=== PATIENT | female | born 1995 | race Caucasian/White ===

== ENCOUNTER 2019-06-01 15:17 | Emergency (ER) | payer OTHER ==
[2019-06-01] MEDS ORDERED: NS 0.9% 1000 ML** 1,000 ML IV ONE (16:08)
--- NOTE | 2019-06-01 16:20 | ED ---
Abdominal Pain/Female - HPI Summary HPI Summary: Patient is a 24 y/o F presenting to [facility] with complaints of RLQ pain that onset last night, 05/31/19, at around 2330. She denies N/V, fever, decreased appetite, back pain, dysuria, and vaginal discharge and bleeding. She was evaluated at [facility] and sent to [facility] to rule out appendicitis. She denies Hx of abdominal surgeries. Patient ate around 30 minutes ago. Hx of asthma and hyperhydrosis is endorsed. LNMP was May 14. She denies Hx of pelvic infections, ovarian cysts, ovarian torsion. Patient denies recent heavy lifting or strain. She states that she does not need any medications for pain and notes that the pain is only significant with movement. - History of Current Complaint Chief Complaint: EDAbdPain Stated Complaint: ABD PAIN PER PT Time Seen by Provider: 06/01/19 16:07 Hx Obtained From: Patient Onset/Duration: Lasting Hours, Still Present Timing: Hours Pain Intensity: 0 Pain Scale Used: 0-10 Numeric Location: Discrete At: RLQ Aggravating Factor(s): Movement Associated Signs and Symptoms: Positive: Other: - negative - back pain, recent heavy lifting or strain. Negative: Fever, Urinary Symptoms, Decreased Appetite , Vaginal Bleeding, Vaginal Discharge, Nausea, Vomiting Allergies/Adverse Reactions: Allergies Allergy/AdvReac Type Severity Reaction Status Date / Time No Known Allergies Allergy Verified 06/01/19 16:23 Home Medications: Home Medications Albuterol Sulfate [Proventil Hfa] 2 puff INH Q4HR PRN 06/01/19 [History Confirmed 06/01/19] Aluminum Chloride 1 applic .SEE ORDER DAILY 06/01/19 [History Confirmed 06/01/19 ] Estradiol/Norgestimate [Prefest Tablet] 1 tab PO DAILY 06/01/19 [History Confirmed 06/01/19] Spironolactone 1 tab PO BID 06/01/19 [History Confirmed 06/01/19] PMH/Surg Hx/FS Hx/Imm Hx Respiratory History: Reports: Hx Asthma History: Reports: Other Problems/Disorders - no Hx of ovarian cyst or pelvic infection - Surgical History Surgery Procedure, Year, and Place: on 06/01/19, reports no Hx of abdominal surgeries Infectious Disease History: No Infectious Disease History: Denies: Traveled Outside the [place] in Last 30 Days - Family History Known Family History: Negative: Blood Disorder - Social History Occupation: Student Alcohol Use: Occasionally Substance Use Type: Reports: None Smoking Status (MU): Never Smoked Tobacco Review of Systems Negative: Fever Gastrointestinal: Other - negative - decreased appetite Positive: Abdominal Pain. Negative: Vomiting, Nausea Genitourinary: Other - negative - vaginal bleeding Negative: dysuria, discharge - vaginal Musculoskeletal: Other - negative - back pain, recent heavy lifting or straining All Other Systems Reviewed And Are Negative: Yes Physical Exam - Summary Physical Exam Summary: Constitutional: Well-developed, Well-nourished, Alert. (-) Distressed Skin: Warm, Dry HENT: Normocephalic; Atraumatic Eyes: Conjunctiva normal Neck: Musculoskeletal ROM normal neck. (-) JVD, (-) Stridor, (-) Tracheal deviation Cardio: Rhythm regular, rate normal, Heart sounds normal; Intact distal pulses; The pedal pulses are 2+ and symmetric. Radial pulses are 2+ and symmetric. (-) Murmur Pulmonary/Chest wall: Effort normal. (-) Respiratory distress, (-) Wheezes, (-) Rales Abd: Soft, (+) McBurneys point tenderness (-) Distension, (-) Guarding, (-) Rebound Musculoskeletal: (-) Edema Lymph: (-) Cervical adenopathy Neuro: Alert, Oriented x3 Psych: Mood and affect Normal Triage Information Reviewed: Yes Vital Signs On Initial Exam: Initial Vitals Temp Pulse Resp BP Pulse Ox 98.1 F 72 16 130/88 100 06/01/19 15:21 06/01/19 15:21 06/01/19 15:21 06/01/19 15:21 06/01/19 15:21 Vital Signs Reviewed: Yes Procedures - Sedation Patient Received Moderate/Deep Sedation with Procedure: No Diagnostics - Vital Signs Vital Signs Temp Pulse Resp BP Pulse Ox 06/01/19 15:21 98.1 F 72 16 130/88 100 - Laboratory Result Diagrams: 06/01/19 16:26 06/01/19 16:26 Lab Statement: Any lab studies that have been ordered have been reviewed, and results considered in the medical decision making process. - Ultrasound APPENDIX US Ultrasound Interpretation Completed By: Radiologist Summary of Ultrasound Findings: IMPRESSION: Appendix not visualized. THIS REPORT WAS REVIEWED BY DR. DINERO. Re-Evaluation - Re-Evaluation First Eval Re-Evaluation Time: 18:30 Comment: Mild RLQ tenderness is noted. + appetite. No fever, nml CRP and white count. Patient to be discharged to home and will follow up with [facility] tomorrow. Second Eval Change: Improved Comment: pt afebrile, nl WBC, CRP. no n/v. + appetite. mild RLQ tenderness. overall presentation low suspicion for appy., however recommend pt f/u tomorrow w/ [facility]. pt informed that if symptoms worsen, to return to ED w / understanding that abd. CT would be the next diagnostic step. pt understanding , comfortable forgoing CT today and comfortable w/ d/c home. Abdominal Pain Fem Course/Dx - Course Course Of Treatment: Patient is a 24 y/o F presenting to [facility] with complaints of RLQ pain that onset last night, 05/31/19, at around 2330. She denies N/V, fever, decreased appetite, back pain, dysuria, and vaginal discharge and bleeding. She was evaluated at [facility] and sent to [facility] to rule out appendicitis. She denies Hx of abdominal surgeries. Patient has positive McBurney's point tenderness. Bloodwork was obtained. Abnormal values include MCH 32, glucose 106. Patient received 1 L NS. APPENDIX US IMPRESSION: Appendix not visualized. Mild RLQ tenderness is noted. + appetite. No fever, nml CRP and white count. Patient's case was discussed with Dr. Stevens. He agrees with discharge and next day follow up at [facility] to see if Sx worsen. Patient to be discharged to home and will follow up with [facility] tomorrow. - Diagnoses Provider Diagnoses: RLQ abdominal pain - Provider Notifications Discussed Care Of Patient With: Magdaleno Stevens Time Discussed With Above Provider: 19:11 Instructed by Provider To: Other - Patient's case was discussed with Dr. Stevens. He agrees with discharge and next day follow up to see if Sx worsen. Discharge ED - Sign-Out/Discharge Documenting (check all that apply): Patient Departure - discharge - Discharge Plan Condition: Stable Disposition: HOME Patient Education Materials: Acute Abdominal Pain (ED) Referrals: [facility] - [facility] [Z.BUSINESS, APPLICATION, OTHER] - 1 Day Additional Instructions: PLEASE RETURN TO ED FOR ANY NEW OR WORSENING SYMPTOMS. FOLLOW UP WITH REPLACED BY [facility] TOMORROW. - Billing Disposition and Condition Condition: STABLE Disposition: Home - Attestation Statements Document Initiated by Jass: Yes Documenting Scribe: JIE TENA Provider For Whom Jass is Documenting (Include Credential): EDNA DINERO DO Scribe Attestation: IJIE, scribed for EDNA DINERO DO on 06/01/19 at 1924. Scribe Documentation Reviewed: Yes Provider Attestation: The documentation as recorded by the JIE inman accurately reflects the service I personally performed and the decisions made by me, EDNA DINERO DO Status of Scribe Document: Viewed
[2019-06-01 16:46] LABS: ABS Lymphocytes 2.3 10^3/ul (1.0-4.8); ABS Monocytes 0.4 10^3/ul (0-0.8); Eosinophil % 0.5 %; Hematocrit 43 % (35-47); Hemoglobin 15.2 g/dL (12.0-16.0); Lymphocyte % 34.1 %; Mean Corpuscular HGB Conc 35 g/dL (31-36); Mean Corpuscular Hemoglobin 32 pg (27-31); Mean Corpuscular Volume 90 fL (80-97); Mean Platelet Volume 8.7 fL (7.4-10.4); Platelet Count 220 10^3/uL (150-450); Red Blood Count 4.76 10^6 /uL (3.70-4.87); Red Cell Distribution Width 12 % (10-15); White Blood Count 6.7 10^3/uL (3.5-10.8)
[2019-06-01 17:24] LABS: ALT 20 U/L (7-52); AST 21 U/L (13-39); Albumin 4.3 g/dL (3.2-5.2); Albumin/Globulin Ratio 1.3 (1-3); Alkaline Phosphatase 45 U/L (34-104); Anion Gap 5 mmol/L (2-11); BUN/Creatinine Ratio 15.4 (8-20); Blood Urea Nitrogen 14 mg/dL (6-24); C Reactive Protein 7.03 mg/L (<8.01); CO2 Carbon Dioxide 27 mmol/L (22-32); Calcium 9.7 mg/dL (8.6-10.3); Chloride 104 mmol/L (101-111); EGFR African American 92.7 (>60); EGFR Non-African American 76.6 (>60); Globulin 3.3 g/dL (2-4); Glucose 106 mg/dL (70-100); Potassium 3.9 mmol/L (3.5-5.0); Sodium 136 mmol/L (135-145); Total Protein 7.6 g/dL (6.4-8.9)
[2019-06-01 18:16] LABS: HCG Pregnancy < 0.60 mIU/mL
[2019-06-01 19:13] LABS: Urine Appearance Clear; Urine Bilirubin Negative (Negative); Urine Blood Negative (Negative); Urine Color Straw; Urine Glucose Negative (Negative); Urine Ketones Negative (Negative); Urine Nitrite Negative (Negative); Urine Protein Negative (Negative); Urine Specific Gravity 1.009 (1.010-1.030); Urine Urobilinogen Negative (Negative)
[2019-06-01 19:28] VITALS: BP 133/66
== END 2019-06-01 19:27 | disposition home or self-care (01) ==
LOC: ED 15:17
DX: R10.31 Right lower quadrant pain (principal); J45.909 Unspecified asthma, uncomplicated; Z79.899 Other long term (current) drug therapy
CPT/HCPCS: 36415; 76705; 80053; 81003; 84702; 85025; 86140; 96360; 99283

== ENCOUNTER 2019-10-15 23:47 | Emergency (ER) | payer OTHER ==
--- NOTE | 2019-10-16 02:38 | ED ---
Upper Extremity Pain - HPI Summary HPI Summary: This pt is a 24 Y/O F presenting to [facility] with a CC of L arm swelling and increased fatigue that has been intermittent for the last 12 hours and started at 1130 10/15/2019 after [address] and is rated a 1/10 in severity. She states that her L arm had increased in size and felt much heavier than her R. Her boyfriend stated that he noticed that the arm seemed much larger in size. She states that her L arm became purple as well. She denies any fevers, chills, headaches, N/V, and SOB. She denies any aggravating or alleviating factors. She states that she is currently on control and takes anti-acne medications. - History of Current Complaint Chief Complaint: EDExtremityUpper Stated Complaint: L ARM SWOLLEN PER PT Time Seen by Provider: 10/16/19 01:58 Hx Obtained From: Patient Mechanism Of Injury: Unknown Onset/Duration: Started Hours Ago - 12, Still Present Timing: Constant Severity Initially: Mild Severity Currently: Mild Pain Location: Arm - L Aggravating Factor(s): Nothing Alleviating Factor(s): Nothing Associated Signs & Symptoms: Positive: Negative - headaches, Swelling. Negative : Fever, Chest Pain, SOB, Nausea, Vomiting - Allergies/Home Medications Allergies/Adverse Reactions: Allergies Allergy/AdvReac Type Severity Reaction Status Date / Time No Known Allergies Allergy Verified 10/16/19 00:06 Home Medications: Home Medications Albuterol Sulfate [Proventil Hfa] 2 puff INH Q4HR PRN 06/01/19 [History Confirmed 10/16/19] Aluminum Chloride 1 applic .SEE ORDER DAILY 06/01/19 [History Confirmed 10/16/19 ] Estradiol/Norgestimate [Prefest Tablet] 1 tab PO DAILY 06/01/19 [History Confirmed 10/16/19] Spironolactone 1 tab PO BID 06/01/19 [History Confirmed 10/16/19] PMH/Surg Hx/FS Hx/Imm Hx Previously Healthy: Yes Endocrine/Hematology History: Denies: Hx Diabetes Cardiovascular History: Denies: Hx Embolism Respiratory History: Reports: Hx Asthma History: Reports: Other Problems/Disorders - no Hx of ovarian cyst or pelvic infection Sensory History: Denies: Hx Legally Blind Opthamlomology History: Denies: Hx Legally Blind - Cancer History Hx Chemotherapy: No Hx Radiation Therapy: No - Surgical History Surgical History: None Surgery Procedure, Year, and Place: on 06/01/19, reports no Hx of abdominal surgeries - Immunization History Immunizations Up to Date: Yes Infectious Disease History: No Infectious Disease History: Denies: Traveled Outside the [place] in Last 30 Days - Family History Known Family History: Negative: Blood Disorder - Social History Occupation: Student - Grad-student Lives: Alone Alcohol Use: Occasionally Hx Substance Use: No Substance Use Type: Reports: None Hx Tobacco Use: No Smoking Status (MU): Never Smoked Tobacco Review of Systems Negative: Fever, Chills Negative: Shortness Of Breath Negative: Vomiting, Nausea Positive: Other - L arm edema, L arm soreness. Negative: Headache All Other Systems Reviewed And Are Negative: Yes Physical Exam - Summary Physical Exam Summary: Constitutional: Well-developed, Well-nourished, Alert. (-) Distressed Skin: Warm, Dry HENT: Normocephalic; Atraumatic Eyes: Conjunctiva normal Neck: Musculoskeletal ROM normal neck. (-) JVD, (-) Stridor, (-) Tracheal deviation Cardio: Rhythm regular, rate normal, Heart sounds normal; Intact distal pulses; The pedal pulses are 2+ and symmetric. Radial pulses are 2+ and symmetric. Pulmonary/Chest wall: Effort normal. (-) Respiratory distress, (-) Wheezes, (-) Rales Abd: Soft, (-) tenderness, (-) Distension, (-) Guarding, (-) Rebound Musculoskeletal: (-) Edema, L elbow to mid-bicep is more firm, more tender on deep palpation, L bicep is 2.5 cms larger than her R, soreness in the L armpit Neuro: Alert, Oriented x3 Psych: Mood and affect Normal Triage Information Reviewed: Yes Vital Signs On Initial Exam: Initial Vitals Temp Pulse Resp BP Pulse Ox 98.2 F 81 15 152/100 99 10/16/19 00:05 10/16/19 00:05 10/16/19 00:05 10/16/19 00:05 10/16/19 00:05 Vital Signs Reviewed: Yes Procedures - Sedation Patient Received Moderate/Deep Sedation with Procedure: No Diagnostics - Vital Signs Vital Signs Temp Pulse Resp BP Pulse Ox 10/16/19 00:05 98.2 F 81 15 152/100 99 - Laboratory Result Diagrams: 10/16/19 03:14 10/16/19 03:14 Lab Statement: Any lab studies that have been ordered have been reviewed, and results considered in the medical decision making process. - EKG 0239 Cardiac Rate: NL - 80 BPM EKG Rhythm: Sinus Rhythm ST Segment: Normal Summary of EKG Findings: An EKG at 0239 reveals sinus rhythm at 80 BPM, RSR vs incomplete RBBB. Otherwise nml axis, nml intervals. No STEMI. No acute changes. Interpreted by Dr. Salguero, 0242 10/16/2019 Course/Dx - Course Course Of Treatment: This pt is a 24 Y/O F presenting to [facility] with a CC of L arm swelling and increased fatigue that has been intermittent for the last 12 hours and started at 1130 10/15/2019 after driving. She states that her L arm had increased in size and felt much heavier than her R. Her boyfriend stated that he noticed that the arm seemed much larger in size. Her PE found her L Elbow to mid-bicep is more firm, more tender on deep palpation, L bicep is 2.5 cms larger than her R, soreness in the L armpit. An EKG at 0239 reveals sinus rhythm at 80 BPM, RSR vs incomplete RBBB. Otherwise nml axis, nml intervals. No STEMI. No acute changes. She has no abnormalities during her ED visit on her labratory findings. She will be signed out to Dr. Gary Bedolla MD from Dr. Cachorro Salguero MD pedning venous doppler study of her upper extremity and disposition at shift change 0700 10/16/2019 to rule out DVT and arm swelling. - Diagnoses Provider Diagnoses: Arm swelling, DVT (deep venous thrombosis) Discharge ED - Sign-Out/Discharge Documenting (check all that apply): Sign-Out Patient Signing out patient TO: Jose Elias Bedolla - Discharge Plan Condition: Good Referrals: No Primary Care Phys,NOPCP [Primary Care Provider] - - Billing Disposition and Condition Condition: GOOD - Attestation Statements Document Initiated by Scribe: Yes Documenting Scribe: Wil Garces Provider For Whom Scribe is Documenting (Include Credential): Cachorro Salguero MD Scribe Attestation: Wil Sifuentes, scribed for Cachorro Salguero MD on 10/16/19 at 0601. Scribe Documentation Reviewed: Yes Provider Attestation: The documentation as recorded by the Wil inman accurately reflects the service I personally performed and the decisions made by me, Cachorro Salguero MD Status of Scribe Document: Viewed
[2019-10-16 03:24] LABS: ABS Eosinophils 0.1 10^3/ul (0-0.6); ABS Lymphocytes 2.8 10^3/ul (1.0-4.8); ABS Monocytes 0.7 10^3/ul (0-0.8); ABS Neutrophils 4.1 10^3/ul (1.5-7.7); Eosinophil % 1.1 %; Hematocrit 38 % (35-47); Hemoglobin 13.1 g/dL (12.0-16.0); Lymphocyte % 36.3 %; Mean Corpuscular HGB Conc 34 g/dL (31-36); Mean Corpuscular Hemoglobin 31 pg (27-31); Mean Corpuscular Volume 91 fL (80-97); Nucleated Red Blood Cells % 0.1; Platelet Count 195 10^3/uL (150-450); Red Cell Distribution Width 13 % (10-15); White Blood Count 7.7 10^3/uL (3.5-10.8)
[2019-10-16 03:33] LABS: Activated Partial Thrombo Time 27.4 seconds (26.0-38.0); INR 0.99 (0.82-1.09)
[2019-10-16 03:41] LABS: Anion Gap 4 mmol/L (2-11); BUN/Creatinine Ratio 20.7 (8-20); Blood Urea Nitrogen 19 mg/dL (6-24); CO2 Carbon Dioxide 28 mmol/L (22-32); Calcium 9.1 mg/dL (8.6-10.3); Chloride 105 mmol/L (101-111); EGFR African American 91.5 (>60); EGFR Non-African American 75.6 (>60); Glucose 93 mg/dL (70-100); Potassium 4.1 mmol/L (3.5-5.0); Sodium 137 mmol/L (135-145)
[2019-10-16 03:48] LABS: HCG Pregnancy < 0.60 mIU/mL
--- NOTE | 2019-10-16 07:13 | ED ---
Progress - Progress Note Progress Note: Patient is received as a sign-out from Dr. Salguero at 0700 10/16/19 shift change pending US LUE and disposition. LUE US IMPRESSION: NO EVIDENCE FOR DEEP VENOUS THROMBOSIS. THIS REPORT WAS REVIEWED BY ED PHYSICIAN. 906 - US results were discussed with patient, patient to be discharged to home. PCP followup given. Course/Dx - Course Course Of Treatment: Patient is received as a sign-out from Dr. Salguero at 0700 10/16/19 shift change pending US LUE and disposition. LUE US IMPRESSION: NO EVIDENCE FOR DEEP VENOUS THROMBOSIS. 0907 - US results were discussed with patient, patient to be discharged to home. PCP followup given. - Diagnoses Provider Diagnoses: Arm swelling Discharge ED - Sign-Out/Discharge Documenting (check all that apply): Patient Departure - DISCHARGE , Receiving Sign-Out Receiving patient FROM: Cachorro Salguero - Discharge Plan Condition: Good Disposition: HOME Patient Education Materials: Arm Pain (ED) Referrals: [facility] [Z.BUSINESS, APPLICATION, OTHER] - 3 Days Additional Instructions: PLEASE RETURN FOR ANY NEW OR CONCERNING SYMPTOMS. PLEASE FOLLOW UP WITH YOUR PRIMARY CARE PHYSICIAN WITHIN THREE DAYS. - Billing Disposition and Condition Condition: GOOD Disposition: Home - Attestation Statements Document Initiated by Scribe: Yes Documenting Scribe: JIE TENA Provider For Whom Jass is Documenting (Include Credential): EDNA DINERO DO Scribramandeep Attestation: JIE Sifuentes, scribed for EDNA DINERO DO on 10/16/19 at 1107. Scribe Documentation Reviewed: Yes Provider Attestation: The documentation as recorded by the JIE inman accurately reflects the service I personally performed and the decisions made by EDNA fowler DO Status of Scribramandeep Document: Viewed
[2019-10-16 09:34] VITALS: BP 126/91
== END 2019-10-16 09:33 | disposition home or self-care (01) ==
LOC: ED 23:47
DX: I82.622 Acute embolism and thrombosis of deep veins of left upper extremity (principal); R60.9 Edema, unspecified; R53.83 Other fatigue
CPT/HCPCS: 36415; 80048; 84702; 85025; 85610; 85730; 93005; 99282

== ENCOUNTER 2019-10-16 15:20 | Emergency (ER) | payer OTHER ==
--- NOTE | 2019-10-16 16:13 | ED ---
Upper Extremity Pain - HPI Summary HPI Summary: Patient is a 24 y/o F presenting to [facility] with complaints of LUE swelling, pain , discoloration, and left hand numbness. Sx had onset last night, she had been evaluated at [facility] for Sx earlier today. US of the arm done at the time was negative for DVT. Patient was discharged to home with PCP followup. However, she returned later today as the swelling and pain had worsened. Patient describes the pain as a throbbing/squeezing sensation. Patient states that she experiences a tightness when raising her arm. She also believes that the skin of this arm appears slightly purple. No discrete injury to arm noted. Home medications and allergies are reviewed. Home Medications Medication Instructions Recorded Confirmed Type Albuterol Sulfate [Proventil Hfa] 2 puff INH Q4HR PRN 06/01/19 10/16/19 History Aluminum Chloride 1 applic .SEE ORDER DAILY 06/01/19 10/16/19 History Estradiol/Norgestimate [Prefest 1 tab PO DAILY 06/01/19 10/16/19 History Tablet] Spironolactone 1 tab PO BID 06/01/19 10/16/19 History - History of Current Complaint Chief Complaint: EDExtremityUpper Stated Complaint: SWOLLEN,NUMBNESS IN LEFT ARM PER PT Time Seen by Provider: 10/16/19 15:28 Hx Obtained From: Patient Onset/Duration: Still Present, Worse Since Timing: Constant Pain Location: Other: - LUE Associated Signs & Symptoms: Positive: Swelling, Numbness/Tingling - hand - Allergies/Home Medications Allergies/Adverse Reactions: Allergies Allergy/AdvReac Type Severity Reaction Status Date / Time No Known Allergies Allergy Verified 10/16/19 00:06 Home Medications: Home Medications Albuterol Sulfate [Proventil Hfa] 2 puff INH Q4HR PRN 06/01/19 [History Confirmed 10/16/19] Aluminum Chloride 1 applic .SEE ORDER DAILY 06/01/19 [History Confirmed 10/16/19 ] Estradiol/Norgestimate [Prefest Tablet] 1 tab PO DAILY 06/01/19 [History Confirmed 10/16/19] Spironolactone 1 tab PO BID 06/01/19 [History Confirmed 10/16/19] PMH/Surg Hx/FS Hx/Imm Hx Endocrine/Hematology History: Denies: Hx Diabetes Cardiovascular History: Denies: Hx Embolism Respiratory History: Reports: Hx Asthma History: Reports: Other Problems/Disorders - no Hx of ovarian cyst or pelvic infection Sensory History: Denies: Hx Legally Blind Opthamlomology History: Denies: Hx Legally Blind - Cancer History Hx Chemotherapy: No Hx Radiation Therapy: No - Surgical History Surgery Procedure, Year, and Place: on 06/01/19, reports no Hx of abdominal surgeries Infectious Disease History: No Infectious Disease History: Denies: Traveled Outside the [place] in Last 30 Days - Family History Known Family History: Negative: Blood Disorder - Social History Alcohol Use: Occasionally Hx Substance Use: No Substance Use Type: Reports: None Hx Tobacco Use: No Smoking Status (MU): Never Smoked Tobacco Review of Systems Positive: Myalgia - LUE , Edema - LUE Skin: Other - left arm discoloration Positive: Numbness - left hand All Other Systems Reviewed And Are Negative: Yes Physical Exam - Summary Physical Exam Summary: Constitutional: Well-developed, Well-nourished, Alert. (-) Distressed Skin: Warm, Dry, Left Hand is erythematous HENT: Normocephalic; Atraumatic Eyes: Conjunctiva normal Neck: Musculoskeletal ROM normal neck. (-) JVD, (-) Stridor, (-) Tracheal deviation Cardio: Rhythm regular, rate normal, Heart sounds normal; Intact distal pulses; The pedal pulses are 2+ and symmetric. Radial pulses are 2+ and symmetric. (-) Murmur Pulmonary/Chest wall: Effort normal. (-) Respiratory distress, (-) Wheezes, (-) Rales Abd: Soft, (-) tenderness, (-) Distension, (-) Guarding, (-) Rebound Musculoskeletal: Left arm is noted to be swollen, distal pulses are intact Lymph: (-) Cervical adenopathy Neuro: Alert, Oriented x3; no weakness, subjective numbness noted Psych: Mood and affect Normal Triage Information Reviewed: Yes Vital Signs On Initial Exam: Initial Vitals Temp Pulse Resp BP Pulse Ox 98.7 F 75 18 128/92 99 10/16/19 15:37 10/16/19 15:37 10/16/19 15:37 10/16/19 15:37 10/16/19 15:37 Vital Signs Reviewed: Yes Procedures - Sedation Patient Received Moderate/Deep Sedation with Procedure: No Diagnostics - Vital Signs Vital Signs Temp Pulse Resp BP Pulse Ox 10/16/19 15:37 98.7 F 75 18 128/92 99 - Laboratory Lab Statement: Any lab studies that have been ordered have been reviewed, and results considered in the medical decision making process. - CT CT CHEST CT Interpretation Completed By: Radiologist Summary of CT Findings: IMPRESSION: Negative contrast-enhanced CT of the chest accounting for arterial phase of. enhancement. No pathologic process evident. Negative for findings of thoracic outlet. syndrome. THIS REPORT WAS REVIEWED BY ED PHYSICIAN. Course/Dx - Course Course Of Treatment: Patient is a 24 y/o F presenting to [facility] with complaints of LUE swelling, pain, discoloration, and left hand numbness. Sx had onset last night, she had been evaluated at [facility] for Sx earlier today. US of the arm done at the time was negative for DVT. Patient was discharged to home with PCP followup. However, she returned later today as the swelling and pain had worsened. Patient describes the pain as a throbbing/squeezing sensation. Patient states that she experiences a tightness when raising her arm. She also believes that the skin of this arm appears slightly purple. On physical exam, patient's left arm is noted to be swollen, hand is erythematous, distal pulses are intact. No weakness, subjective numbness noted. CT CHEST IMPRESSION: Negative contrast-enhanced CT of the chest accounting for arterial phase of. enhancement. No pathologic process evident. Negative for findings of thoracic outlet. syndrome. Arterial doppler study of left arm to be obtained, patient is signed-out to Dr. Kramer at 1900 10/16/19 pending this study. - Diagnoses Provider Diagnoses: Arm pain, Vasospasm Discharge ED - Sign-Out/Discharge Documenting (check all that apply): Sign-Out Patient Signing out patient TO: Fouzia Kramer - Discharge Plan Condition: Stable Disposition: HOME Patient Education Materials: Arm Pain (ED) Referrals: [facility] [Provider Group] - 3 Days Additional Instructions: PLEASE RETURN FOR ANY NEW OR CONCERNING SYMPTOMS. PLEASE FOLLOW UP WITH YOUR PRIMARY CARE PHYSICIAN WITHIN THREE DAYS. - Attestation Statements Document Initiated by Scribe: Yes Documenting Scribe: JIE TENA Provider For Whom Scribe is Documenting (Include Credential): EDNA DINERO, DO Scribe Attestation: JIE Sifuentes, scribed for EDNA DINERO, DO on 10/16/19 at 1835. Status of Scribe Document: Ready
[2019-10-16] MEDS ORDERED: Iohexol 300* (CONTRAST) 10 ML SDV IV ONE (17:06)
[2019-10-16] MEDS ORDERED: Ketorolac INJ* 30 MG/ML 1 ML VIAL IV PUSH ONE (18:35)
[2019-10-16] MEDS ORDERED: NS 0.9% 1000 ML** 1,000 ML IV ONE (18:35)
--- NOTE | 2019-10-16 19:18 | ED ---
Progress - Progress Note Progress Note: Pt is a signout from Dr. Bedolla at 1900 on 10/16/19 pending an arterial ultrasound for left arm swelling. - Results/Orders Results/Orders: Venous Doppler Study: Positive for DVT in the left upper extremity. Occlusive thrombus in the left subclavian vein. Nonocclusive thrombus in the axillary vein. Nonocclusive thrombus in the basilic vein which is a superficial vein. ED physician has reviewed this report. Re-Evaluation - Re-Evaluation 1st re-eval Re-Evaluation Time: 21:30 Change: Unchanged Comment: I spoke with Dr. Sanchez about the pt's presenting condition. she spoke with our interventional radiologist. we are unable to do the needed procedure here. Dr Sanchez recommends that the pt be transferred to [facility] for subclavian thrombolysis. 2nd re-eval Re-Evaluation Time: 23:12 Change: Unchanged Comment: [facility] is unable to give a specific time that they may have a room inpatient, and are unable to accept to the ER. Initiating transfer to Health system. at the same time a bed assignment was given for [facility]. transferred to [facility] on Heparin drip by ambulance Course/Dx - Course Course Of Treatment: I spoke with interventional radiologist, hospitalist and ED physician. Everyone agreed to accept this patient for procedure at 6am. awaiting bed assignment - Diagnoses Provider Diagnoses: Subclavian vein thrombosis, left Discharge ED - Sign-Out/Discharge Documenting (check all that apply): Patient Departure, Receiving Sign-Out Receiving patient FROM: Jose Elias Bedolla - Discharge Plan Condition: Stable Disposition: TRANS HIGHER LVL OF CARE FAC Patient Education Materials: Arm Pain (ED) Referrals: [facility] [Provider Group] - 3 Days - Billing Disposition and Condition Condition: STABLE Disposition: Trans Higher Lvl of Care Fac - Attestation Statements Document Initiated by Scribe: Yes Documenting Scribe: Roxie Pugh Provider For Whom Jass is Documenting (Include Credential): Fouzia Kramer MD. Scribe Attestation: Roxie Sifuentes, scribed for Fouzia Kramer MD. on 10/16/19 at [id number]. Scribe Documentation Reviewed: Yes Provider Attestation: The documentation as recorded by the Roxie inman accurately reflects the service I personally performed and the decisions made by me, Fouzia Kramer MD. Status of Scribe Document: Viewed
[2019-10-16] MEDS ORDERED: Heparin DRIP 25,000 UNITS(*) 25,000 UNITS/500 ML BAG IV SCH (21:45)
--- NOTE | 2019-10-16 21:46 | PN ---
Hospitalist Progress Note Date of Service: 10/16/19 HOSPITALIST ADDENDUM Called by Dr Kramer to admit this patient with very symptomatic UE DVT for thrombolytic therapy. I talked with Dr Galdamez who tells me we do not perform this procedure here. Plan is to start heparin drip and transfer to a higher level of care.
[2019-10-16] MEDS ORDERED: Heparin VIAL(*) 5000 UNITS/ML VIAL (FIVE THOUSAND) IV SCH (22:00)
[2019-10-17 00:31] LABS: ABS Basophils 0.1 10^3/ul (0-0.2); ABS Eosinophils 0.1 10^3/ul (0-0.6); ABS Lymphocytes 3.5 10^3/ul (1.0-4.8); ABS Monocytes 0.5 10^3/ul (0-0.8); ABS Neutrophils 4.9 10^3/ul (1.5-7.7); Eosinophil % 0.7 %; Hematocrit 41 % (35-47); Hemoglobin 14.2 g/dL (12.0-16.0); Lymphocyte % 38.5 %; Mean Corpuscular HGB Conc 35 g/dL (31-36); Mean Corpuscular Hemoglobin 31 pg (27-31); Mean Corpuscular Volume 91 fL (80-97); Mean Platelet Volume 8.5 fL (7.4-10.4); Platelet Count 214 10^3/uL (150-450); Red Blood Count 4.57 10^6 /uL (3.70-4.87); Red Cell Distribution Width 13 % (10-15); White Blood Count 9.1 10^3/uL (3.5-10.8)
[2019-10-17 00:46] LABS: EGFR African American 100.3 (>60); EGFR Non-African American 82.9 (>60)
[2019-10-17 01:28] VITALS: BP 129/84
== END 2019-10-17 01:26 | disposition short-term general hospital (02) ==
LOC: ED 15:20
DX: I82.B12 Acute embolism and thrombosis of left subclavian vein (principal); J45.909 Unspecified asthma, uncomplicated
CPT/HCPCS: 36415; 71260; 82565; 84520; 85025; 85652; 85730; 96361; 96374; 96375; 96376; 99283; J1644; J1885; Q9967